=== PATIENT | female | born 1940 | race Caucasian/White ===

== ENCOUNTER → 2016-12-16 | Outpatient (CLI) | payer MEDICARE, BC ==
[~2016-12-16] MED LIST: AMITRYPTYLINE PO; APRISO0.375 GM PO; BUPROPION HCL150 M2 PO; CALCIUM500 M1 PO; COREG3.125 MG PO; SYNTHROID25 MCG PO; VITAMIN D1000 UNI1 PO
== END | disposition home or self-care (01) ==
LOC: CSSDAY 06:21
DX: K51.00 Ulcerative (chronic) pancolitis without complications (principal)
CPT/HCPCS: 96413; 96415; J1200; J1745